=== PATIENT | female | born 1955 | race Caucasian/White ===

== ENCOUNTER 2017-10-12 23:53 | Observation (INO) ==
[2017-10-13] MEDS ORDERED: *HR* Morphine 2 MG/ML SYRINGE IVP PRN (01:34)
[2017-10-13] MEDS ORDERED: Ondansetron 4 MG/2 ML VIAL IVP PRN (01:34)
[2017-10-13] MEDS ORDERED: *HR* Dextrose 50 % in Water (Syg) 50 ML SYRINGE IVP PRN (01:34)
[2017-10-13] MEDS ORDERED: Dextrose Gel 15 GM/37.5 ML TUBE PO PRN ×2 (01:34)
[2017-10-13] MEDS ORDERED: D5% in Water 1,000 ML IVC PRN (01:34)
[2017-10-13] MEDS: 0.9 % Sodium Chloride 1,000 ML IVC SCH ×3 (02:10→17:36)
[2017-10-13] MEDS: *HR* Heparin 5,000 UNIT/ML VIAL SQ SCH ×2 (05:22→17:32)
[2017-10-13 05:37] LABS: Basophils # 0.1 K/mcL (0.0-0.2); Basophils % 0.8 %; Eosinophils % 0.4 %; Hematocrit 36.9 % (35.3-44.9); Hemoglobin 11.3 g/dL (11.5-15.4); Immature Granulocytes % 0.4 % (0-4); Lymphocytes # 1.1 K/mcL (0.6-4.6); Lymphocytes % 11.8 %; Mean Corpuscular HGB Conc 30.6 g/dL (31.6-35.5); Mean Corpuscular Volume 88.1 fL (83.0-100.0); Mean Platelet Volume 10.3 fL (9.4-12.4); Monocytes # 0.7 K/mcL (0.0-1.3); Monocytes % 7.1 %; Neutrophils # 7.3 K/mcL (1.6-8.9); Platelet Count 232 K/mcL (140-400); Red Blood Count 4.19 M/mcL (3.82-4.97); Red Cell Distribution Width 14.7 % (11.5-14.5); Segmented Neutrophils % 79.5 %
[2017-10-13 06:10] LABS: Alanine Aminotransferase 13 Units/L (7-52); Albumin 3.1 g/dL (3.5-5.7); Albumin/Globulin Ratio 1.2 (1.1-2.2); Alkaline Phosphatase 55 Units/L (34-104); Aspartate Amino Transferase 16 Units/L (13-39); BUN/Creatinine Ratio 23 (6-26); Bilirubin,Total 0.4 mg/dL (0.3-1.0); Blood Urea Nitrogen 15 mg/dL (8-23); Calcium 7.8 mg/dL (8.6-10.3); Carbon Dioxide 25 mEq/L (23-29); Chloride 107 mEq/L (98-107); Globulin 2.6 g/dL (2.4-3.5); Glucose 123 mg/dL (70-105); Osmolality,Calculated 288 (280-300); Potassium 4.6 mEq/L (3.5-5.1); Sodium 138 mEq/L (136-145); Total Protein 5.7 g/dL (6.4-8.9); eGFR For African Americans > 60 (> 60); eGFR For Non-African Americans > 60 (> 60)
[2017-10-13] MEDS: Insulin LISPRO 300 UNITS/3 ML VIAL SQ SCH ×3 (06:38→17:35)
--- NOTE | 2017-10-13 08:39 | Internal Med History&Physical ---
Date of Encounter: 10/13/17 Time of Encounter: 08:37 Assessment and Plan (1) Vomiting and diarrhea Current visit: Yes Status: Acute Picture is more suggestive of gastroenteritis. Patient presented with vomiting diarrhea and abdominal pain. Abdominal exam is benign. She is nontender. Prior surgeries include only hysterectomy and a . She had never had a colonoscopy and I advised her to get one as an outpatient. CT scan showing partial small bowel obstruction. Appreciate surgery input on this and decision regarding diet advancement (2) Diabetes mellitus type 2 in obese Current visit: Yes Status: Acute Sliding scale insulin. (3) DVT prophylaxis Current visit: Yes Status: Acute Heparin subcutaneous Internal Medicine - H&P: HPI Chief complaint: vomiting and diarrhea History of present illness: Ms. Adams is a 62 year old female patient presented to the emergency room yesterday with a main complain of abdominal pain vomiting and diarrhea. Approximately 5 PM after patient ate a bag of cashews she started noticing diffuse crampy periumbilical abdominal pain associated with intractable nonbloody nonbilious vomiting and 3 loose bowel movements in addition to chills. No hematemesis melena or hematochezia. CT scan performed at the outside emergency room showed concern for partial small bowel obstruction. Patient only abdominal surgeries include hysterectomy and . Patient denies having bowel obstruction before. Patient never had a colonoscopy before. During my interview patient denies any abdominal pain. Past Med Surg Social Fam HX - Past Medical History Medical history: diabetes Psychiatric history: no psych history - Past Surgical History Surgical History: hysterectomy - Social History Smoking Status: Never smoker Smokeless Tobacco Status: No Alcohol use: none Drug use: none Internal Medicine - H&P: Meds Acetaminophen with Codeine [Acetaminophen-Cod #3 Tablet] 1 each PO QID 10/12/17 [History] Albuterol Sulfate [Albuterol Inhaler] 1 puff IH DAILY PRN 10/12/17 [History] Albuterol Sulfate [Proventil Hfa] 6.7 gm IH DAILY PRN 10/12/17 [History] Aspirin Enteric Coated [Aspirin EC] 325 mg PO DAILY 10/12/17 [History] Atorvastatin [Lipitor] 10 mg PO HS 10/12/17 [History] Citalopram Hydrobromide [Citalopram HBr] 10 mg PO BID 10/12/17 [History] Diltiazem CD (24hr) [Cardizem CD] 300 mg PO DAILY 10/12/17 [History] Etodolac [Lodine] 400 mg PO BID 10/12/17 [History] Gabapentin [Neurontin] 600 mg PO QID 10/12/17 [History] Lisinopril [Zestril] 5 mg PO BID 10/12/17 [History] Metformin HCl [Fortamet] 1,000 mg PO HS 10/12/17 [History] Methyl Salicylate/Menth/Camph [Salonpas Large Patch] 1 each TP DAILY PRN [History] Methyl Salicylate/Menthol [Salonpas Pain Relieve Jet [place]] 118 ml TP DAILY PRN 10/12/17 [History] Metoprolol Tartrate [Lopressor] 25 mg PO TID 10/12/17 [History] Omeprazole [PriLOSEC] 20 mg PO HS 10/12/17 [History] glyBURIDE [GlyBURIDE] 5 mg PO BIDWM 10/12/17 [History] 3 Allergy/AdvReac Type Severity Reaction Status Date / Time caffeine Allergy Palpitation Verified 10/12/17 21:13 s Penicillins Allergy Hives Verified 10/12/17 21:13 tramadol Allergy Vomiting Verified 10/12/17 21:13 All Systems PM: A 10-system review of systems was performed and is negative for pertinent findings except as documented above in the HPI. Review of systems: 10 point review of systems is negative except for HPI - Constitutional Vitals: Temp Pulse Resp BP Pulse Ox 98.5 F 88 16 127/76 95 10/13/17 07:28 10/13/17 07:28 10/13/17 07:28 10/13/17 07:28 10/13/17 07:28 Exam: Gen.: patient is alert oriented times 3 not in distress. Cardiac: normal S1 S2 no additional sounds are murmurs. Chest: clear to auscultation. Abdomen: soft nontender nondistended. Lower extremity no swelling mucous membranes: moist Internal Med - H&P Results - Labs CBC & Chem 7: 10/13/17 04:53 10/13/17 04:53 Labs: Short CBC 10/13/17 Range/Units 04:53 WBC 9.2 (4.3-11.1) K/mcL Hgb 11.3 L D (11.5-15.4) g/dL Hct 36.9 (35.3-44.9) % Plt Count 232 (140-400) K/mcL Neutrophils # 7.3 (1.6-8.9) K/mcL BMP 10/13/17 04:53 Sodium 138 Potassium 4.6 Chloride 107 Carbon Dioxide 25 BUN 15 Creatinine 0.65 Glucose 123 H Calcium 7.8 L Liver Function 10/13/17 Range/Units 04:53 Total Bilirubin 0.4 (0.3-1.0) mg/dL AST 16 (13-39) Units/L ALT 13 (7-52) Units/L Alkaline Phosphatase 55 (34-104) Units/L Albumin 3.1 L (3.5-5.7) g/dL
[2017-10-13] MEDS: Aspirin Enteric Coated 325 MG Tablet PO SCH (09:11)
[2017-10-13] MEDS: Diltiazem CD (24hr) 300 MG CAPSULE PO SCH (09:12)
--- NOTE | 2017-10-13 10:06 | General Surgery Consult Note ---
Date of Encounter: 10/13/17 Time of Encounter: 10:06 Assessment and Plan (1) Abdominal pain Current Visit: Yes Status: Resolved Mrs. Mallory's abdominal exam is benign at this time. She denies any abdominal pain, nausea, vomiting, or diarrhea. She reports passing flatus. She refuses any further workup at this time and request discharged home with a plan to return to the hospital if her symptoms return. I think this reasonable course of action. Surgery will sign off at this time. Thank you for allowing us to participate in Odalys's care. Please call if any questions or concerns arise. Qualifiers: Abdominal location: generalized Qualified Code(s): R10.84 - Generalized abdominal pain History of Present Illness Consult date: 10/13/17 (Dr. Yossi Falcon) Reason for consult: abdominal pain (Possible small bowel obstruction) Requesting physician: Case Kerr History of present illness: Reason for surgical consult: Concern for possible small bowel obstruction Odalys is a 62-year-old female with a past medical history of morbid obesity, BMI 39.4, type II diabetes, anxiety, mitral valve prolapse, SVT, fibromyalgia, hyperlipidemia, arthritis, basal cell skin cancer on the scalp, and a surgical history of a hysterectomy, section, bilateral knee repairs, and facial reconstruction surgery. She denies smoking or alcohol history. She has never had an EGD or a colonoscopy. She presented on 10/12/2017 with complaints of abdominal pain after eating cashews. She states she felt fine prior to eating the cashews, shortly after eating cashews she became nauseated had abdominal pain, and vomiting. Her called EMS to trans per her to the emergency department in [place] because he did not feel like he could get her out of the house. The CT scan was performed by [place] and showed concern for a possible small bowel obstruction. She was transferred to [facility] for further evaluation. Currently the patient states her nausea, abdominal pain, diarrhea, and vomiting has completely resolved. She denies headache, dizziness, fever, chills, changes in bowel habits, urinary symptoms, or generalized weakness. She reports she is passing flatus but has not had a bowel movement here. She reports in appetite. She states she "feels like my normal self." She requests to be discharged to home with a plan to return to the hospital if her symptoms return. Past Med Surg Social Fam HX - Past Medical History Medical history: diabetes Psychiatric history: no psych history - Past Surgical History Surgical History: hysterectomy - Social History Smoking Status: Never smoker Smokeless Tobacco Status: No Alcohol use: none Drug use: none Medications and Allergies Acetaminophen with Codeine [Acetaminophen-Cod #3 Tablet] 1 each PO QID 10/12/17 [History] Albuterol Sulfate [Albuterol Inhaler] 1 puff IH DAILY PRN 10/12/17 [History] Albuterol Sulfate [Proventil Hfa] 6.7 gm IH DAILY PRN 10/12/17 [History] Aspirin Enteric Coated [Aspirin EC] 325 mg PO DAILY 10/12/17 [History] Atorvastatin [Lipitor] 10 mg PO HS 10/12/17 [History] Citalopram Hydrobromide [Citalopram HBr] 10 mg PO BID 10/12/17 [History] Diltiazem CD (24hr) [Cardizem CD] 300 mg PO DAILY 10/12/17 [History] Etodolac [Lodine] 400 mg PO BID 10/12/17 [History] Gabapentin [Neurontin] 600 mg PO QID 10/12/17 [History] Lisinopril [Zestril] 5 mg PO BID 10/12/17 [History] Metformin HCl [Fortamet] 1,000 mg PO HS 10/12/17 [History] Methyl Salicylate/Menth/Camph [Salonpas Large Patch] 1 each TP DAILY PRN [History] Methyl Salicylate/Menthol [Salonpas Pain Relieve Jet [place]] 118 ml TP DAILY PRN 10/12/17 [History] Metoprolol Tartrate [Lopressor] 25 mg PO TID 10/12/17 [History] Omeprazole [PriLOSEC] 20 mg PO HS 10/12/17 [History] glyBURIDE [GlyBURIDE] 5 mg PO BIDWM 10/12/17 [History] 3 Allergy/AdvReac Type Severity Reaction Status Date / Time caffeine Allergy Palpitation Verified 10/12/17 21:13 s Penicillins Allergy Hives Verified 10/12/17 21:13 tramadol Allergy Vomiting Verified 10/12/17 21:13 Review of Systems All systems PM: reviewed and no additional remarkable complaints except as stated All systems PM: A 10-system review of systems was performed and is negative for pertinent findings except as documented above in the HPI. General Surgery Exam Initial Vital Signs Temp Pulse Resp BP Pulse Ox 98.9 F 83 14 130/68 95 10/13/17 01:37 10/13/17 01:37 10/13/17 01:37 10/13/17 01:37 10/13/17 01:37 - General physical appearance well developed, well nourished, no distress, obese - Respiratory normal expansion, normal respiratory effort, clear to auscultation - Cardiovascular Cardiovascular exam: Present: RRR, murmurs, distant heart sounds - Abdomen Abdomen general surgery: Present: bowel sounds present, soft, non tender - Integumentary Integumentary general surgery: Present: warm and dry, no abnormal pigmentation - Neurologic Present: CN 2-12 grossly intact, normal coordination, normal sensation - Musculoskeletal Present: normal gait, normal posture - Psychiatric Psychiatric general surgery: Present: A&Ox3, appropriate, oriented to person, oriented to place, oriented to time, speech is normal, memory intact Exam Initial Vital Signs Temp Pulse Resp BP Pulse Ox 98.9 F 83 14 130/68 95 10/13/17 01:37 10/13/17 01:37 10/13/17 01:37 10/13/17 01:37 10/13/17 01:37 Results - Labs 10/13/17 04:53 10/13/17 04:53 Abnormal lab results Hgb 11.3 g/dL (11.5-15.4) L D 10/13/17 04:53 MCH 27.0 pg (28.0-33.3) L 10/13/17 04:53 MCHC 30.6 g/dL (31.6-35.5) L 10/13/17 04:53 RDW 14.7 % (11.5-14.5) H 10/13/17 04:53 Glucose 123 mg/dL (70-105) H 10/13/17 04:53 Calcium 7.8 mg/dL (8.6-10.3) L 10/13/17 04:53 Serum Total Protein 5.7 g/dL (6.4-8.9) L 10/13/17 04:53 Albumin 3.1 g/dL (3.5-5.7) L 10/13/17 04:53 Diabetes panel 10/13/17 Range/Units 04:53 Sodium 138 (136-145) mEq/L Potassium 4.6 (3.5-5.1) mEq/L Chloride 107 (98-107) mEq/L Carbon Dioxide 25 (23-29) mEq/L BUN 15 (8-23) mg/dL Creatinine 0.65 (0.60-1.20) mg/dL Glucose 123 H (70-105) mg/dL Calcium 7.8 L (8.6-10.3) mg/dL AST 16 (13-39) Units/L ALT 13 (7-52) Units/L Alkaline Phosphatase 55 (34-104) Units/L Albumin 3.1 L (3.5-5.7) g/dL Calcium panel 10/13/17 Range/Units 04:53 Calcium 7.8 L (8.6-10.3) mg/dL Albumin 3.1 L (3.5-5.7) g/dL Pituitary panel 10/13/17 Range/Units 04:53 Sodium 138 (136-145) mEq/L Potassium 4.6 (3.5-5.1) mEq/L Chloride 107 (98-107) mEq/L Carbon Dioxide 25 (23-29) mEq/L BUN 15 (8-23) mg/dL Creatinine 0.65 (0.60-1.20) mg/dL Glucose 123 H (70-105) mg/dL Calcium 7.8 L (8.6-10.3) mg/dL Adrenal panel 10/13/17 Range/Units 04:53 Sodium 138 (136-145) mEq/L Potassium 4.6 (3.5-5.1) mEq/L Chloride 107 (98-107) mEq/L Carbon Dioxide 25 (23-29) mEq/L BUN 15 (8-23) mg/dL Creatinine 0.65 (0.60-1.20) mg/dL Glucose 123 H (70-105) mg/dL Calcium 7.8 L (8.6-10.3) mg/dL Total Bilirubin 0.4 (0.3-1.0) mg/dL AST 16 (13-39) Units/L ALT 13 (7-52) Units/L Alkaline Phosphatase 55 (34-104) Units/L Albumin 3.1 L (3.5-5.7) g/dL All other labs normal. - Imaging CT scan - abdomen: report reviewed CT scan - pelvis: report reviewed Consult Discharge Plan - Plan Referrals: Juan F Guzman MD [Primary Care Provider] -
[2017-10-13] MEDS: *HR* Acetaminophen w/Cod 300-30 mg 1 TAB TABLET PO PRN ×2 (10:53→21:18)
[2017-10-14] MEDS: 0.9 % Sodium Chloride 1,000 ML IVC SCH ×2 (01:22→09:05)
[2017-10-14] MEDS: Insulin LISPRO 300 UNITS/3 ML VIAL SQ SCH ×3 (01:25→12:52)
[2017-10-14] MEDS: *HR* Heparin 5,000 UNIT/ML VIAL SQ SCH (05:02)
[2017-10-14] MEDS: *HR* Acetaminophen w/Cod 300-30 mg 1 TAB TABLET PO PRN ×2 (05:02→11:19)
[2017-10-14 05:27] LABS: Basophils # 0.1 K/mcL (0.0-0.2); Basophils % 1.2 %; Eosinophils # 0.4 K/mcL (0.0-0.6); Eosinophils % 6.3 %; Hematocrit 37.8 % (35.3-44.9); Hemoglobin 11.6 g/dL (11.5-15.4); Immature Granulocytes % 0.4 % (0-4); Lymphocytes # 1.1 K/mcL (0.6-4.6); Lymphocytes % 15.8 %; Mean Corpuscular HGB Conc 30.7 g/dL (31.6-35.5); Mean Corpuscular Hemoglobin 27.2 pg (28.0-33.3); Mean Corpuscular Volume 88.7 fL (83.0-100.0); Mean Platelet Volume 9.9 fL (9.4-12.4); Monocytes # 0.7 K/mcL (0.0-1.3); Monocytes % 10.5 %; Neutrophils # 4.5 K/mcL (1.6-8.9); Platelet Count 223 K/mcL (140-400); Red Blood Count 4.26 M/mcL (3.82-4.97); Red Cell Distribution Width 14.8 % (11.5-14.5); Segmented Neutrophils % 65.8 %
[2017-10-14 06:06] LABS: BUN/Creatinine Ratio 11 (6-26); Blood Urea Nitrogen 7 mg/dL (8-23); Calcium 7.9 mg/dL (8.6-10.3); Carbon Dioxide 28 mEq/L (23-29); Chloride 109 mEq/L (98-107); Glucose 128 mg/dL (70-105); Magnesium 1.4 mg/dL (1.6-2.6); Osmolality,Calculated 294 (280-300); Potassium 4.1 mEq/L (3.5-5.1); Sodium 142 mEq/L (136-145); eGFR For African Americans > 60 (> 60); eGFR For Non-African Americans > 60 (> 60)
[2017-10-14] MEDS: Diltiazem CD (24hr) 300 MG CAPSULE PO SCH (09:04)
[2017-10-14] MEDS: Aspirin Enteric Coated 325 MG Tablet PO SCH (09:04)
[2017-10-14] MEDS ORDERED: Gabapentin 300 MG CAPSULE PO SCH (13:00)
[2017-10-14 13:58] VITALS: BP 123/70
--- NOTE | 2017-10-14 14:34 | Discharge Summary ---
Date of Encounter: 10/14/17 Time of Encounter: 11:00 - Discharge Diagnosis (1) Diabetes mellitus type 2 in obese Priority: Primary Status: Acute (2) Abdominal pain Priority: Secondary Status: Resolved Qualifiers: Abdominal location: generalized Qualified Code(s): R10.84 - Generalized abdominal pain - Discharge Medications Home Medications: Acetaminophen with Codeine [Acetaminophen-Cod #3 Tablet] 1 each PO QID 10/12/17 [History] Albuterol Sulfate [Albuterol Inhaler] 1 puff IH DAILY PRN 10/12/17 [History] Aspirin Enteric Coated [Aspirin EC] 325 mg PO DAILY 10/12/17 [History] Atorvastatin [Lipitor] 10 mg PO HS 10/12/17 [History] Citalopram Hydrobromide [Citalopram HBr] 10 mg PO BID 10/12/17 [History] Diltiazem CD (24hr) [Cardizem CD] 300 mg PO DAILY 10/12/17 [History] Etodolac [Lodine] 400 mg PO BID 10/12/17 [History] Gabapentin [Neurontin] 600 mg PO QID 10/12/17 [History] Lisinopril [Zestril] 5 mg PO BID 10/12/17 [History] Metformin HCl [Fortamet] 1,000 mg PO HS 10/12/17 [History] Methyl Salicylate/Menth/Camph [Salonpas Large Patch] 1 each TP DAILY PRN [History] Methyl Salicylate/Menthol [Salonpas Pain Relieve Jet [place]] 118 ml TP DAILY PRN 10/12/17 [History] Metoprolol Tartrate [Lopressor] 25 mg PO TID 10/12/17 [History] Omeprazole [PriLOSEC] 20 mg PO HS 10/12/17 [History] glyBURIDE [GlyBURIDE] 5 mg PO BIDWM 10/12/17 [History] Allergies/Adverse Reactions: 3 Allergy/AdvReac Type Severity Reaction Status Date / Time caffeine Allergy Palpitation Verified 10/13/17 10:44 s Penicillins Allergy Hives Verified 10/13/17 10:44 tramadol Allergy Vomiting Verified 10/13/17 10:44 Date of admission: 10/13/17 01:11 Primary care physician: Juan F Guzman MD Consults: 10/13/17 01:34 Consult to Surgery [CONS] Routine Consulting Provider: Yossi Falcon Reason for Consult: SBO Call Completed: No - Patient Status Disposition: Home, Self-Care - Discharge Instructions Follow Up With: Juan F Guzman MD [Primary Care Provider] - Hospital course: Patient is a 62-year-old female with past medical history significant for diabetes who presents to the ER on 10/13/17 due to abdominal pain and nausea/ vomiting. Patient reported that abdominal pain started after eating a bag of cashews. Shortly thereafter patient noticed diffuse cramping with periumbilical abdominal discomfort in addition to her intractable nonbloody, non-bilious vomiting with 3 loose bowel movements. She decided to go to [place] [facility] for evaluation which she was found to have a partial small bowel obstruction on CT scan. Patient was transferred to [facility] for further management. During patients hospital stay, Gen. surgery was consulted with recommendations for medical management due to the fact the patient was passing flatus and her abdominal pain resolved. In addition patient also had a bowel movement. Patient tolerating by mouth and will be discharged to follow-up with primary care provider. - Time Spent with Patient Total time spent providing and/or coordinating discharge services: Less than 30 minutes - Constitutional Vitals: Temp Pulse Resp BP Pulse Ox 98.0 F 70 16 123/70 93 10/14/17 13:57 10/14/17 13:57 10/14/17 13:57 10/14/17 13:57 10/14/17 13:57 General appearance: Present: no acute distress - GI/Abdominal GI/Abdominal exam: Present: normal bowel sounds
== END 2017-10-14 16:17 | disposition home or self-care (01) ==
LOC: INTOOBSV 10-13 01:11 → 3ANU 10-13 01:11
PROVIDERS: ADMIT Pediatrics; ATTEND Hospitalist

== ENCOUNTER 2017-10-27 10:52 | Inpatient (IN) ==
--- NOTE | 2017-10-27 11:25 | Emergency Department Note ---
Disposition Clinical Impression: CHF (congestive heart failure) Qualifiers: Congestive heart failure type: systolic Congestive heart failure chronicity: unspecified Qualified Code(s): I50.20 - Unspecified systolic (congestive) heart failure Pneumonia Qualifiers: Pneumonia type: due to unspecified organism Laterality: bilateral Lung location : unspecified part of lung Qualified Code(s): J18.9 - Pneumonia, unspecified organism Disposition: Admitted As Inpatient Condition: Fair Referrals: Juan F Guzman MD [Primary Care Provider] - Forms: ED Satisfaction Letter Time of Disposition: 14:02 SOB HPI - General Chief Complaint: ED Shortness of Breath/Dyspnea Stated Complaint: SOB Time Seen by Provider: 10/27/17 10:58 Source: patient Limitations: no limitations Nursing Notes Reviewed: Yes Vital Signs Reviewed: Yes - History of Present Illness Presents with shortness of breath for the last 5 days which is worse with exertion and constant and she does have bilateral lower extremity swelling which is much worse on the left. Typically does get swelling of her legs but it typically goes down and the left leg swelling has persisted. She denies any weight gain. No chest pain or discomfort. No fevers, coughing. No medication has been used. She does have a history of asthma and has been using her inhaler /aerosol but this has not improved her symptoms. No history of congestive heart failure. Social history: No smoking or alcohol. She is here with her - Related Data Home Medications Medication Instructions Recorded Confirmed Acetaminophen with Codeine 1 each PO QID 10/12/17 10/27/17 [Acetaminophen-Cod #3 Tablet] Albuterol Sulfate [Albuterol 1 puff IH DAILY PRN 10/12/17 10/27/17 Inhaler] Aspirin Enteric Coated [Aspirin EC] 325 mg PO DAILY 10/12/17 10/27/17 Atorvastatin [Lipitor] 10 mg PO HS 10/12/17 10/27/17 Citalopram Hydrobromide 10 mg PO BID 10/12/17 10/27/17 [Citalopram HBr] Diltiazem CD (24hr) [Cardizem CD] 300 mg PO DAILY 10/12/17 10/27/17 Etodolac [Lodine] 400 mg PO BID 10/12/17 10/27/17 Gabapentin [Neurontin] 600 mg PO QID 10/12/17 10/27/17 Lisinopril [Zestril] 5 mg PO BID 10/12/17 10/27/17 Metformin HCl [Fortamet] 1,000 mg PO HS 10/12/17 10/27/17 Methyl Salicylate/Menth/Camph 1 each TP DAILY PRN 10/12/17 10/27/17 [Salonpas Large Patch] Methyl Salicylate/Menthol 118 ml TP DAILY PRN 10/12/17 10/27/17 [Salonpas Pain Relieve Jet [place]] Metoprolol Tartrate [Lopressor] 25 mg PO TID 10/12/17 10/27/17 Omeprazole [PriLOSEC] 20 mg PO HS 10/12/17 10/27/17 glyBURIDE [GlyBURIDE] 5 mg PO BIDWM 10/12/17 10/27/17 Allergies Allergy/AdvReac Type Severity Reaction Status Date / Time caffeine Allergy Palpitation Verified 10/13/17 10:44 s Penicillins Allergy Hives Verified 10/13/17 10:44 tramadol Allergy Vomiting Verified 10/13/17 10:44 Review of Systems: Constitutional: No fever Vision: No blurred vision ENT: No rhinorrhea Respiratory: No cough Allergic: No allergies : No blood in urine GI: No blood in stool Hematologic: No bruising Dermatologic: No skin rash Musculoskeletal: No pain in the extremities Neuro: No numbness of the extremities Past Medical History - Past Medical History Medical history: Reports: asthma, diabetes Surgical history: Reports: hysterectomy Psychiatric history: Reports: no psych history EMERGENCY MEDICAL TECHNICIAN BASIC history: Reports: no EMERGENCY MEDICAL TECHNICIAN BASIC history - Social History Smoking Status: Never smoker Smokeless Tobacco Status: No Alcohol use: Reports: none Drug use: Reports: none Physical Exam CONSTITUTIONAL: Alert and oriented X3, well-nourished, well appearing, in no apparent distress HEAD: Normocephalic; atraumatic. EYES: PERRL, no scleral icterus. NOSE: The nose is normal in appearance without rhinorrhea RESP: Normal chest excursion with respiration; breath sounds with bibasilar crackles which are symmetric, no wheezing, apices are clear CV: Regular rhythm, without murmurs, rub or gallop ABD: Non-distended; non-tender, soft,without rigidity, rebound or guarding SKIN: Normal for age and race; warm and dry; no apparent lesions EXTREMITIES: Pulses are 2 plus and equal times 4 extremities, bilateral lower extremity edema worse on the left compared to the right, no erythema or signs of infection, muscle pain peripheral edema or calf muscle pain. - General Limitations: no limitations General appearance: alert, in no apparent distress Course Vital Signs O2 Sat by Pulse Oximetry 88 10/27/17 11:00 Temperature 98 F 10/27/17 11:01 Pulse Rate 70 10/27/17 12:37 Respiratory Rate 18 10/27/17 12:37 Blood Pressure 148/75 10/27/17 12:37 O2 Sat by Pulse Oximetry 92 10/27/17 12:37 Oxygen Delivery Oxygen Delivery Nasal Cannula Shortness of Breath/Dyspnea - MDM Narrative Medical decision making narrative: Labs including BNP and d-dimer. I did review the chest x-ray which does look like congestive heart failure and the patient will be treated for that. She does have increased swelling on the left compared to the right and a Doppler be done as well as a d-dimer which is pending. Labs are pending. I did review the patient's EKG showing normal sinus rhythm with a rate of 71 and nonspecific T-wave change which is basically some flattening and this was present on the previous EKG from several weeks ago. 1125 I did review the patient's test results. Chest x-ray as well as the clinical presentation most suggestive of congestive heart failure but with the elevated d -dimer a CTA was done and based on the radiologist's interpretation this is most suggestive of a pneumonia. As the patient was recently admitted she will be started on cefepime and vancomycin and we did discuss the case with the hospitalist who accepted the patient and she will be admitted. She has received treatment for congestive heart failure with IV Lasix and nitroglycerin paste and she is admitted. 1357 - Medical Records Medical records reviewed: Yes I reviewed the patient's medical records. - Lab Data Lab results reviewed: Yes I reviewed the patient's lab results. Result diagrams: 10/27/17 11:22 10/27/17 11:22 Lab Results 10/27/17 10/27/17 10/27/17 Range/Units 11:22 11:22 11:22 WBC 7.5 (4.3-11.1) K/mcL RBC 4.00 (3.82-4.97) M/mcL Hgb 11.0 L (11.5-15.4) g/dL Hct 36.1 (35.3-44.9) % MCV 90.3 (83.0-100.0) fL MCH 27.5 L (28.0-33.3) pg MCHC 30.5 L (31.6-35.5) g/dL RDW 15.8 H (11.5-14.5) % Plt Count 261 (140-400) K/mcL MPV 9.7 (9.4-12.4) fL Immature Gran % 0.7 (0-4) % Seg Neutrophils % 75.7 % Lymphocytes % 11.4 % Monocytes % 6.7 % Eosinophils % 4.6 % Basophils % 0.9 % Neutrophils # 5.7 (1.6-8.9) K/mcL Lymphocytes # 0.9 (0.6-4.6) K/mcL Monocytes # 0.5 (0.0-1.3) K/mcL Eosinophils # 0.3 (0.0-0.6) K/mcL Basophils # 0.1 (0.0-0.2) K/mcL Nucleated RBCs/100 WBC 0.3 H (0) /100 WBC D-Dimer 1331 H (0-500) ng/mLFEU Sodium 141 (136-145) mEq/L Potassium 3.9 (3.5-5.1) mEq/L Chloride 108 H (98-107) mEq/L Carbon Dioxide 23 (23-29) mEq/L BUN 17 (8-23) mg/dL Creatinine 0.59 L (0.60-1.20) mg/dL Est GFR ( Amer) > 60 (> 60) Est GFR (Non-Af Amer) > 60 (> 60) BUN/Creatinine Ratio 29 H (6-26) Glucose 105 (70-105) mg/dL Calculated Osmolality 294 (280-300) Calcium 8.7 (8.6-10.3) mg/dL Troponin I (< 0.04) ng/mL B-Natriuretic Peptide (Less than 100) pg/mL 10/27/17 10/27/17 Range/Units 11:22 11:22 WBC (4.3-11.1) K/mcL RBC (3.82-4.97) M/mcL Hgb (11.5-15.4) g/dL Hct (35.3-44.9) % MCV (83.0-100.0) fL MCH (28.0-33.3) pg MCHC (31.6-35.5) g/dL RDW (11.5-14.5) % Plt Count (140-400) K/mcL MPV (9.4-12.4) fL Immature Gran % (0-4) % Seg Neutrophils % % Lymphocytes % % Monocytes % % Eosinophils % % Basophils % % Neutrophils # (1.6-8.9) K/mcL Lymphocytes # (0.6-4.6) K/mcL Monocytes # (0.0-1.3) K/mcL Eosinophils # (0.0-0.6) K/mcL Basophils # (0.0-0.2) K/mcL Nucleated RBCs/100 WBC (0) /100 WBC D-Dimer (0-500) ng/mLFEU Sodium (136-145) mEq/L Potassium (3.5-5.1) mEq/L Chloride (98-107) mEq/L Carbon Dioxide (23-29) mEq/L BUN (8-23) mg/dL Creatinine (0.60-1.20) mg/dL Est GFR ( Amer) (> 60) Est GFR (Non-Af Amer) (> 60) BUN/Creatinine Ratio (6-26) Glucose (70-105) mg/dL Calculated Osmolality (280-300) Calcium (8.6-10.3) mg/dL Troponin I < 0.03 (< 0.04) ng/mL B-Natriuretic Peptide 389 H (Less than 100) pg/mL - Radiology Data Radiology results reviewed: Yes I reviewed the patient's radiology results. Chest X-Ray 10/27/17 11:11 IMPRESSION: Findings are suggestive of congestive heart failure with small bilateral pleural effusions. D/ / Sangita Santillan MD / Sangita Santillan MD Interpreting Provider: Sangita Santillan MD Chest CTA 10/27/17 12:18 IMPRESSION: 1. No evidence of pulmonary embolism or acute aortic disease. 2. Bilateral lower lobe infiltrates and small pleural effusions consistent with pneumonia. 3. Masslike lesion in the right upper lobe may also represent an infiltrate. Increased interstitial markings noted. 4. Mediastinal and right hilar adenopathy. 5. The above findings may represent the result of infection with pneumonia. In view of significant adenopathy as described neoplasm cannot be excluded. D/ / 10/27/2017 13:46:24 Brielle Toledo MD / jose francisco Interpreting Provider: Brielle Toledo MD
[2017-10-27 11:33] LABS: Basophils # 0.1 K/mcL (0.0-0.2); Basophils % 0.9 %; Eosinophils # 0.3 K/mcL (0.0-0.6); Eosinophils % 4.6 %; Hematocrit 36.1 % (35.3-44.9); Immature Granulocytes % 0.7 % (0-4); Lymphocytes # 0.9 K/mcL (0.6-4.6); Lymphocytes % 11.4 %; Mean Corpuscular HGB Conc 30.5 g/dL (31.6-35.5); Mean Corpuscular Hemoglobin 27.5 pg (28.0-33.3); Mean Corpuscular Volume 90.3 fL (83.0-100.0); Mean Platelet Volume 9.7 fL (9.4-12.4); Monocytes # 0.5 K/mcL (0.0-1.3); Monocytes % 6.7 %; Neutrophils # 5.7 K/mcL (1.6-8.9); Nucleated Red Blood Cells 0.3 /100 WBC (0); Platelet Count 261 K/mcL (140-400); Red Cell Distribution Width 15.8 % (11.5-14.5); Segmented Neutrophils % 75.7 %
[2017-10-27] MEDS ORDERED: Furosemide 40 MG/4 ML VIAL IVP ONE (11:46)
[2017-10-27] MEDS ORDERED: Nitroglycerin 1 INCH/GM PACKET TP ONE (11:46)
[2017-10-27 11:56] LABS: BUN/Creatinine Ratio 29 (6-26); Blood Urea Nitrogen 17 mg/dL (8-23); Calcium 8.7 mg/dL (8.6-10.3); Carbon Dioxide 23 mEq/L (23-29); Chloride 108 mEq/L (98-107); Glucose 105 mg/dL (70-105); Osmolality,Calculated 294 (280-300); Potassium 3.9 mEq/L (3.5-5.1); Sodium 141 mEq/L (136-145); eGFR For African Americans > 60 (> 60); eGFR For Non-African Americans > 60 (> 60)
[2017-10-27] MEDS ORDERED: Vancomycin 1,250 MG in D5% in Water 250 ML IVPB ONE (13:49)
[2017-10-27] MEDS ORDERED: Cefepime HCl 2,000 MG in D5% in Water (Mini-Bag+) 100 ML IVPB STA (13:49)
--- NOTE | 2017-10-27 19:01 | Internal Med History&Physical ---
Date of Encounter: 10/27/17 Time of Encounter: 18:00 Assessment and Plan (1) Hospital-acquired pneumonia Current visit: Yes Status: Acute -CTA of chest showed bilateral lower lobe infiltrates and small pleural effusions consistent with pneumonia in addition to a mass like lesion in the right upper lobe may also represent an infiltrate. There was also additional findings of Mediastinal and right hilar adenopathy and due to the above findings, neoplasm cannot be excluded. -Will continue coverage with IV vancomycin and IV cefepime which was started in the ER. -Will need a repeat CT in 2 months for follow-up for the above (2) Acute respiratory failure with hypoxia Current visit: Yes Status: Acute -Secondary to the above. -Will continue supplemental oxygen to wean as tolerates. (3) HTN (hypertension), benign Current visit: Yes Status: Acute -Continue home GEOVANNI inhibitor and beta paulino (4) Diabetes mellitus type 2 in obese Current visit: No Status: Acute -Will hold oral diabetic medications and cover with sliding scale insulin (5) HLD (hyperlipidemia) Current visit: Yes Status: Acute -Continue statin Qualifiers: Hyperlipidemia type: unspecified Qualified Code(s): E78.5 - Hyperlipidemia , unspecified (6) GERD (gastroesophageal reflux disease) Current visit: Yes Status: Acute -Continue PPI Qualifiers: Esophagitis presence: esophagitis presence not specified Qualified Code(s) : K21.9 - Gastro-esophageal reflux disease without esophagitis (7) Mood disorder Current visit: Yes Status: Acute -Continue SSRI (8) DVT prophylaxis Current visit: No Status: Acute -Up cutaneous heparin Internal Medicine - H&P: HPI Chief complaint: Shortness of breath Admitted From: Home Plans for Post Hospital Care: Home History of present illness: Patient is a 62-year-old female with past medical history significant for hypertension, diabetes, and hyperlipidemia who presents to the ER on 10/27/17 due to shortness of breath. Patient reports a 5 day history of shortness of breath and dyspnea with exertion which has gradually gotten worse and decided to come into the ER for evaluation. She denies any associated symptoms of cough, fever/chills or nausea /vomiting/diarrhea. In the ER, patient was found to be in acute hypoxic respiratory failure. CTA of chest showed bilateral lower lobe infiltrates and small pleural effusions consistent with pneumonia in addition to a mass like lesion in the right upper lobe may also represent an infiltrate. There was also additional findings of Mediastinal and right hilar adenopathy and due to the above findings, neoplasm cannot be excluded. Patient will be admitted to the medical surgical floor for acute hypoxic respiratory failure secondary to HAP. Past Med Surg Social Fam HX - Past Medical History Medical history: asthma, diabetes, valvular heart disease Psychiatric history: no psych history - Past Surgical History Surgical History: hysterectomy - Social History Smoking Status: Never smoker Smokeless Tobacco Status: No Alcohol use: none Drug use: none - Family History Mother Living Status: Age at : 64 Father Living Status: Age at : 80 Cause of : brain tumor Internal Medicine - H&P: Meds Acetaminophen with Codeine [Acetaminophen-Cod #3 Tablet] 1 each PO QID 10/12/17 [History] Albuterol Sulfate [Albuterol Inhaler] 1 puff IH DAILY PRN 10/12/17 [History] Aspirin Enteric Coated [Aspirin EC] 325 mg PO DAILY 10/12/17 [History] Atorvastatin [Lipitor] 10 mg PO HS 10/12/17 [History] Citalopram Hydrobromide [Citalopram HBr] 10 mg PO BID 10/12/17 [History] Diltiazem CD (24hr) [Cardizem CD] 300 mg PO DAILY 10/12/17 [History] Etodolac [Lodine] 400 mg PO BID 10/12/17 [History] Gabapentin [Neurontin] 600 mg PO QID 10/12/17 [History] Lisinopril [Zestril] 5 mg PO BID 10/12/17 [History] Metformin HCl [Fortamet] 1,000 mg PO HS 10/12/17 [History] Methyl Salicylate/Menth/Camph [Salonpas Large Patch] 1 each TP DAILY PRN [History] Methyl Salicylate/Menthol [Salonpas Pain Relieve Jet [place]] 118 ml TP DAILY PRN 10/12/17 [History] Metoprolol Tartrate [Lopressor] 25 mg PO TID 10/12/17 [History] Omeprazole [PriLOSEC] 20 mg PO HS 10/12/17 [History] glyBURIDE [GlyBURIDE] 5 mg PO BIDWM 10/12/17 [History] 3 Allergy/AdvReac Type Severity Reaction Status Date / Time caffeine Allergy Palpitation Verified 10/13/17 10:44 s Penicillins Allergy Hives Verified 10/13/17 10:44 tramadol Allergy Vomiting Verified 10/13/17 10:44 All Systems PM: A 10-system review of systems was performed and is negative for pertinent findings except as documented above in the HPI. - Constitutional Vitals: Temp Pulse Resp BP Pulse Ox 98 F 79 17 167/80 96 10/27/17 11:01 10/27/17 17:03 10/27/17 17:03 10/27/17 17:03 10/27/17 17:03 General appearance: Present: no acute distress - Head Head exam: Present: normocephalic - Eye Eye exam: Present: normal appearance - Respiratory Respiratory exam: Present: CTAB. Absent: accessory muscle use, rales, rhonchi, wheezes - Cardiovascular Cardiovascular exam: Present: RRR, +S1, +S2. Absent: diastolic murmur, gallop, rubs, systolic murmur - Expanded Lower Extremities Exam Ankle exam: Present: swelling Foot/Toe exam: Present: swelling - Neurological Exam Neurological exam: Present: oriented X3 - Psychiatric Psychiatric exam: Present: normal mood - Skin Skin exam: Present: normal color Internal Med - H&P Results - Labs CBC & Chem 7: 10/27/17 11:22 10/27/17 11:22
[2017-10-27] MEDS ORDERED: Naloxone 0.4 MG/ML INJ IVP PRN (19:30)
[2017-10-27] MEDS ORDERED: D5% in Water 1,000 ML IVC PRN (19:40)
[2017-10-27] MEDS ORDERED: Dextrose Gel 15 GM/37.5 ML TUBE PO PRN (19:40)
[2017-10-27] MEDS ORDERED: Vancomycin 1,250 MG in D5% in Water 250 ML IVPB SCH (20:00)
[2017-10-27] MEDS: Ipratropium/Albuterol Neb 3 ML IH SCH ×2 (20:18→23:15)
[2017-10-27] MEDS: *HR* Heparin 5,000 UNIT/ML VIAL SQ SCH (20:24)
[2017-10-27] MEDS: Gabapentin 300 MG CAPSULE PO SCH (20:25)
[2017-10-27] MEDS: *HR* Acetaminophen w/Cod 300-30 mg 1 TAB TABLET PO SCH (20:28)
[2017-10-28] MEDS: Cefepime HCl 2,000 MG in Water for inj. (sterile) 20 ML 20 ML IVP SCH ×3 (01:18→17:54)
[2017-10-28] MEDS: Vancomycin 1,250 MG in D5% in Water 250 ML IVPB SCH ×2 (03:29→15:57)
[2017-10-28] MEDS: Ipratropium/Albuterol Neb 3 ML IH SCH ×6 (03:57→23:08)
[2017-10-28 04:46] LABS: Basophils # 0.1 K/mcL (0.0-0.2); Basophils % 1.4 %; Eosinophils # 0.3 K/mcL (0.0-0.6); Eosinophils % 4.8 %; Hematocrit 34.8 % (35.3-44.9); Hemoglobin 10.6 g/dL (11.5-15.4); Immature Granulocytes % 0.8 % (0-4); Lymphocytes % 14.9 %; Mean Corpuscular HGB Conc 30.5 g/dL (31.6-35.5); Mean Corpuscular Hemoglobin 27.4 pg (28.0-33.3); Mean Corpuscular Volume 89.9 fL (83.0-100.0); Mean Platelet Volume 9.7 fL (9.4-12.4); Monocytes # 0.7 K/mcL (0.0-1.3); Monocytes % 10.8 %; Neutrophils # 4.5 K/mcL (1.6-8.9); Platelet Count 227 K/mcL (140-400); Red Blood Count 3.87 M/mcL (3.82-4.97); Segmented Neutrophils % 67.3 %
[2017-10-28 04:52] LABS: BUN/Creatinine Ratio 23 (6-26); Blood Urea Nitrogen 15 mg/dL (8-23); Calcium 8.5 mg/dL (8.6-10.3); Carbon Dioxide 31 mEq/L (23-29); Chloride 102 mEq/L (98-107); Glucose 167 mg/dL (70-105); Osmolality,Calculated 299 (280-300); Potassium 3.5 mEq/L (3.5-5.1); Sodium 142 mEq/L (136-145); eGFR For African Americans > 60 (> 60); eGFR For Non-African Americans > 60 (> 60)
[2017-10-28] MEDS: *HR* Heparin 5,000 UNIT/ML VIAL SQ SCH ×3 (05:25→21:41)
[2017-10-28] MEDS ORDERED: *HR* GlyBURIDE 5 MG TABLET PO SCH (08:00)
[2017-10-28] MEDS: Aspirin Enteric Coated 325 MG Tablet PO SCH (09:14)
[2017-10-28] MEDS: Gabapentin 300 MG CAPSULE PO SCH ×4 (09:15→21:41)
[2017-10-28] MEDS: predniSONE 20 MG TABLET PO SCH (09:15)
[2017-10-28] MEDS: Diltiazem CD (24hr) 300 MG CAPSULE PO SCH (09:17)
[2017-10-28] MEDS: *HR* Acetaminophen w/Cod 300-30 mg 1 TAB TABLET PO SCH ×4 (09:23→21:41)
--- NOTE | 2017-10-28 11:36 | Internal Med Progress Note ---
<Rodolfo Palumbo - Last Filed: 10/28/17 13:38> Date of Encounter: 10/28/17 Time of Encounter: 11:31 - Assessment and plan (1) Short of breath on exertion Current Visit: Yes Status: Acute Assessment and plan: Possibly from Lung mass vs possibly from PNA vs less likely chf vs less likely PE. 10/27/17 - Chest CTA: no evidence of PE or Acute Aortic Dz, Bilateral lower lobe infiltrates + small pleural effusion consistent w/ PNA, mass like lesion in Right upper lobe. 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 No hx of CHF - no orthopnea, PND, or significant edema. Will consider further cardiac workup. Today patient is improving and stable on 2L of O2. - consult pulm for suspected lung mass - continue vanc + cefepime day 1 - incentive spirometry ordered - wean off of O2 - provide respiratory support PRN - swab for influenza - ordered (2) Obesity (BMI 30-39.9) Current Visit: Yes Status: Acute Assessment and plan: Discussed benefits of weight loss with patient. to be managed outpatient. (3) Acute respiratory failure with hypoxia Current Visit: Yes Status: Acute Assessment and plan: see above. (4) Diabetes mellitus type 2 in obese Current Visit: Yes Status: Acute Assessment and plan: hold PO diabetic Rx; ct SSI (5) DVT prophylaxis Current Visit: Yes Status: Acute Assessment and plan: heparin SQ (6) HLD (hyperlipidemia) Current Visit: Yes Status: Acute Assessment and plan: continue home statin Qualifiers: Hyperlipidemia type: unspecified Qualified Code(s): E78.5 - Hyperlipidemia , unspecified (7) Mood disorder Current Visit: Yes Status: Acute Assessment and plan: currently stable - Subjective Interval history: Ms Adams is a 62 yo female w/ pmh of TDM, HTN, HLD, GERD, and asthma presented to [facility] ED with 2 week hx of progressing SOB on exertion. In the last 2 weeks patient has increased her usage of LINDA to 3 times/day and using her duonebs on a nightly basis. She states that she was diagnosed with asthma as an adult about 20 years ago. 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 She denies hx of tobacco use. On admission, patient was started on O2 and due to her employment at [employer] was considered HAP. Started on IV vanc and IV cefepime (penicillin allergy). Today patient reports that her breathing is much better but has been laying in bed all day. She reports that her breathing is fine on the 2L of O2 that she's currently on. Patient denies fever, chills, aches, tiredness. - Constitutional Vitals: Temp Pulse Resp BP Pulse Ox 97.9 F 69 18 122/56 99 10/28/17 07:19 10/28/17 07:19 10/28/17 11:02 10/28/17 07:19 10/28/17 11:02 General appearance: Present: cooperative, A&O X 3, pleasant, no acute distress, answers questions appropriately - ENT ENT exam: Present: mucous membranes moist, normal exam, normal oropharynx - Respiratory Respiratory exam: Present: decreased breath sounds, prolonged expiratory phase. Absent: accessory muscle use, chest wall tenderness, rales, respiratory distress, stridor, wheezes - Cardiovascular Cardiovascular exam: Present: RRR. Absent: bradycardia, diastolic murmur, distant heart sounds, irregular rhythm, JVD, rubs - Extremities Exam Extremities exam: Present: normal capillary refill, normal inspection, warm, radial pulses palpable and symmetrical. Absent: calf tenderness, cyanotic Additional comments: mild pitting edema on L leg. no pitting edema on R leg - Psychiatric Psychiatric exam: Present: normal affect, normal mood Internal Medicine: Result - Labs CBC & Chem 7: 10/28/17 04:15 10/28/17 04:15 Labs: Short CBC 10/28/17 Range/Units 04:15 WBC 6.7 (4.3-11.1) K/mcL Hgb 10.6 L (11.5-15.4) g/dL Hct 34.8 L (35.3-44.9) % Plt Count 227 (140-400) K/mcL Neutrophils # 4.5 (1.6-8.9) K/mcL BMP 10/28/17 04:15 Sodium 142 Potassium 3.5 Chloride 102 Carbon Dioxide 31 H BUN 15 Creatinine 0.64 Glucose 167 H Calcium 8.5 L - ABG Interpretation ABG results: PT/INR, D-dimer D-Dimer 1331 ng/mLFEU (0-500) H 10/27/17 11:22 Consult Discharge Plan - Plan Referrals: Juan F Guzman MD [Primary Care Provider] - 11/04/17 10:30 am <Los Jang P - Last Filed: 10/28/17 16:11> Date of Encounter: 10/28/17 - Constitutional Vitals: Temp Pulse Resp BP Pulse Ox 97.8 F 81 18 135/65 90 10/28/17 15:14 10/28/17 15:14 10/28/17 15:55 10/28/17 15:14 10/28/17 15:55 Internal Medicine: Result - Labs CBC & Chem 7: 10/28/17 04:15 10/28/17 04:15 Labs: Short CBC 10/28/17 Range/Units 04:15 WBC 6.7 (4.3-11.1) K/mcL Hgb 10.6 L (11.5-15.4) g/dL Hct 34.8 L (35.3-44.9) % Plt Count 227 (140-400) K/mcL Neutrophils # 4.5 (1.6-8.9) K/mcL BMP 10/28/17 04:15 Sodium 142 Potassium 3.5 Chloride 102 Carbon Dioxide 31 H BUN 15 Creatinine 0.64 Glucose 167 H Calcium 8.5 L - ABG Interpretation ABG results: PT/INR, D-dimer D-Dimer 1331 ng/mLFEU (0-500) H 10/27/17 11:22 - Attending Attestation I examined this patient and my medical decision-making was reviewed with the Resident Physician. I agree with the documented findings, disposition and treatment plan as described except to the extent set forth below. 62/female Admitted with worsening shortness of breath. Likely COPD exacerbation with infective etiology. Presently on antibiotics. Noted that on a CT scan of the chest it was demonstrated pulmonary mass. We will get pulmonology to review.
--- NOTE | 2017-10-28 13:04 | Pulmonology Consult Note ---
Date of Encounter: 10/30/17 Time of Encounter: 13:00 Assessment and Plan (1) Acute respiratory failure with hypoxia Current Visit: Yes Status: Acute Patient never uses Oxygen at home now she is on Oxygen secondary pneumonia leading Asthma/COPD exacerbation to continue O2 supplementation to keep saturation 92% As patient has COPD on top of the asthma component . (2) Asthma with COPD with exacerbation Current Visit: Yes Status: Acute Patient has long standing Asthma , after seeing the image she same centrilobular emphysematous changes suspect even though she didnt smoke was exposed wood smoke in her younger years . To continue Duo neb nebulizer , ICS/ LABA ,Prednisone 40 mg PO (3) Pneumonia Current Visit: Yes Status: Acute Patient has multifocal pneumonia with scattered consolidative opacity with not much cough and sputum production will have strong suspicion for atypical pneumonia Vs Viral pneumonia will add Levaquin to current broad spectrum antibiotics regimen . To check Legionella , streptococcus pneumoniae antigen , Mycoplasma . With recent admission in the hospital for possible small bowel obstruction if not getting better will add clindamycin for better lung penetration than flagyl to cover anerobic coveraged . Will send Blood cultures , RT to do induced sputum . This is her first inpatient episode inflammatory pneumonias like [employer] is low on the differential will send respiratory viral infection panel . To do incentive spirometry and flutter valve to encourage coughing up secretions . When she coughs up send for sputum cultures . Qualifiers: Pneumonia type: due to unspecified organism Laterality: unspecified laterality Lung location: unspecified part of lung Qualified Code(s): J18.9 - Pneumonia, unspecified organism (4) CHF (congestive heart failure) Current Visit: Yes Status: Acute Patient has high BNP with some ground glass opacities in lungs concern for heart failure will get an ECHO patient has on and off pedal edema Qualifiers: Congestive heart failure type: unspecified Congestive heart failure chronicity: unspecified Qualified Code(s): I50.9 - Heart failure, unspecified (5) Mediastinal lymphadenopathy Current Visit: Yes Status: Acute Patient has significant lymphadenopathy in the hilar , subcarinal , Paratracheal area these all can be due to inflammation due to underlying pneumonia sanket repeat imaging as outpatient in 6-8 weeks to see the progress if there is persistent LN will do Bronchoscopy with airway evaluation and EBUS . Patient verbalized understanding of the plan (6) Lung nodule < 6cm on CT Current Visit: Yes Status: Acute It is in the Right upper lobe abutting the fissure this can be very well swelling of intraparenchymal LN will repeat imaging in 6-8 weeks as an outpatient if this nodular mass like lesions is persistent with mediastinal LN will do Bronchoscopy with EBUS as an outpatient . History of Present Illness Consult date: 10/28/17 Requesting physician: Los Jang Reason for consult: dyspnea, cough Chief complaint: Shortness of Breadth History of present illness: 62 year old female with past medical history significant for DM, HTN , asthma/ COPD most likely secondary to would smoke exposure right from the young age. She carries the diagnosis of asthma on LINDA prn , ICS/LABA comes with shortness of breadth which got progressively worsen over the course of 5 days , had some cough but not much sputum production she gets on and off pneumonia for the past 2 years always had outpatient therapy this is the first time she got admitted for pneumonia , patient was recently admitted in the hospital evaluation for Small bowel obstruction and she was discharged before all these started the was sick for couple of days then her shortness of breadth started , has some on and off pedal edema this time her left leg was more swelling when she came to the ER CTA was done which no evidence of PE but showed multilobar pneumonia with more prominent air space disease in the lower lobe , has bilateral ground glass opacities , has some areas of air trapping , she has mass like lesion in the RUL along the fissure primary team was concerned of this Right Lung mass . Pulmonary was Consulted for evaluation of this mass like lesion Past Med Surg Social Fam HX - Past Medical History Medical history: asthma, diabetes, valvular heart disease Psychiatric history: no psych history - Past Surgical History Surgical History: hysterectomy - Social History Smoking Status: Never smoker Smokeless Tobacco Status: No Alcohol use: none Drug use: none - Family History Mother Living Status: Age at : 64 Father Living Status: Age at : 80 Cause of : brain tumor Medications and Allergies Acetaminophen with Codeine [Acetaminophen-Cod #3 Tablet] 1 each PO QID 10/12/17 [History] Albuterol Sulfate [Albuterol Inhaler] 1 puff IH DAILY PRN 10/12/17 [History] Aspirin Enteric Coated [Aspirin EC] 325 mg PO DAILY 10/12/17 [History] Atorvastatin [Lipitor] 10 mg PO HS 10/12/17 [History] Citalopram Hydrobromide [Citalopram HBr] 10 mg PO BID 10/12/17 [History] Diltiazem CD (24hr) [Cardizem CD] 300 mg PO DAILY 10/12/17 [History] Etodolac [Lodine] 400 mg PO BID 10/12/17 [History] Gabapentin [Neurontin] 600 mg PO QID 10/12/17 [History] Lisinopril [Zestril] 5 mg PO BID 10/12/17 [History] Metformin HCl [Fortamet] 1,000 mg PO HS 10/12/17 [History] Methyl Salicylate/Menth/Camph [Salonpas Large Patch] 1 each TP DAILY PRN [History] Methyl Salicylate/Menthol [Salonpas Pain Relieve Jet [place]] 118 ml TP DAILY PRN 10/12/17 [History] Metoprolol Tartrate [Lopressor] 25 mg PO TID 10/12/17 [History] Omeprazole [PriLOSEC] 20 mg PO HS 10/12/17 [History] glyBURIDE [GlyBURIDE] 5 mg PO BIDWM 10/12/17 [History] PredniSONE [Deltasone] 5 mg PO DAILY 9 Days #21 tablet 10/30/17 [Rx] levoFLOXacin [Levaquin] 750 mg PO DAILY 7 Days #7 tablet 10/30/17 [Rx] 3 Allergy/AdvReac Type Severity Reaction Status Date / Time caffeine Allergy Palpitation Verified 10/13/17 10:44 s Penicillins Allergy Hives Verified 10/13/17 10:44 tramadol Allergy Vomiting Verified 10/13/17 10:44 All Systems: All other review of systems were found to be negative Physical Examination Vital Signs: Vital Signs, Last 4 Hours Temp Pulse Resp BP Pulse Ox 10/28/17 11:31 97.7 F 100 15 143/67 94 10/28/17 11:02 18 99 Auscultation: bilateral: diminished breath sounds Results - Laboratory Findings CBC and BMP: 10/29/17 17:38 10/30/17 05:04 PT/INR, D-dimer D-Dimer 1331 ng/mLFEU (0-500) H 10/27/17 11:22 Abnormal lab findings: Abnormal lab results Hgb 10.6 g/dL (11.5-15.4) L 10/28/17 04:15 Hct 34.8 % (35.3-44.9) L 10/28/17 04:15 MCH 27.4 pg (28.0-33.3) L 10/28/17 04:15 MCHC 30.5 g/dL (31.6-35.5) L 10/28/17 04:15 RDW 16.0 % (11.5-14.5) H 10/28/17 04:15 Nucleated RBCs/100 WBC 0.3 /100 WBC (0) H 10/27/17 11:22 D-Dimer 1331 ng/mLFEU (0-500) H 10/27/17 11:22 Carbon Dioxide 31 mEq/L (23-29) H 10/28/17 04:15 Glucose 167 mg/dL (70-105) H 10/28/17 04:15 POC Glucose 288 (58-89) H 10/27/17 20:48 Calcium 8.5 mg/dL (8.6-10.3) L 10/28/17 04:15 B-Natriuretic Peptide 389 pg/mL (Less than 100) H 10/27/17 11:22 - Clinical Findings Intake & Output: Intake & Output 10/27/17 10/28/17 10/28/17 23:59 07:59 15:59 Intake Total 0 / 0 560 / 560 340 / 340 Output Total 0 / 0 Balance 0 / 0 560 / 560 340 / 340 Weight 85.1 kg Consult Discharge Plan - Plan Additional Instructions: 1. F/U CTA in 6 weeks 2. No stranuous activities 3. no lifting 4. use O2 at night and on activity 5. instructions for tapered dose of Prednisone 6. finish levaquin course Referrals: Ching Nieto MD [Partnered Physician] - (referral was made for 6 week follow, up if they ahve not called you by next tuesday call their office to make an appointment) Juan F Guzman MD [Primary Care Provider] - 11/04/17 10:30 am Prescriptions: levoFLOXacin [Levaquin] 750 mg PO DAILY 7 Days #7 tablet PredniSONE [Deltasone] 5 mg PO DAILY 9 Days #21 tablet
--- NOTE | 2017-10-28 13:45 | Electrocardiograph Report ---
[place] [id number] Test Date: 2017-10-27 Pat Name: Odalys Adams Department: 103 Room: 2N2 Gender: F Second Facing Baster: : 1955 Requested By: Rubin Mitchell Order Number: [id number] Reading MD: Fish Mantilla Measurements Intervals [place] Rate: 71 P: 50 MT: 139 QRS: 48 QRSD: 82 T: 8 QT: 392 QTc: 414 Interpretive Statements SINUS RHYTHM NONSPECIFIC T-WAVE ABNORMALITY Electronically Signed On 10-28-2017 13:43:54 EST by Fish Mantilla
[2017-10-28] MEDS ORDERED: *HR* Dextrose 50 % in Water (Syg) 50 ML SYRINGE IVP PRN (13:46)
[2017-10-28] MEDS ORDERED: D5% in Water 1,000 ML IVC PRN (13:46)
[2017-10-28] MEDS ORDERED: Dextrose Gel 15 GM/37.5 ML TUBE PO PRN ×2 (13:46)
[2017-10-28 15:25] LABS: Adenovirus Not Detected (Not Detect); Bordetella Pertussis Not Detected (Not Detect); Chlamydophila pneumoniae Not Detected (Not Detect); Coronavirus 229E Not Detected (Not Detect); Coronavirus HKU1 Not Detected (Not Detect); Coronavirus NL63 Not Detected (Not Detect); Coronavirus OC43 Not Detected (Not Detect); Human Metapneumovirus Not Detected (Not Detect); Human Rhinovirus/Enterovirus Not Detected (Not Detect); Influenza A Subtype 2009 H1 Not Detected (Not Detect); Influenza A Untypeable Not Detected (Not Detect); Influenza B Not Detected (Not Detect); Mycoplasma pneumoniae Not Detected (Not Detect); Parainfluenza Virus 1 Not Detected (Not Detect); Parainfluenza Virus 2 Not Detected (Not Detect); Parainfluenza Virus 3 Not Detected (Not Detect); Parainfluenza Virus 4 Not Detected (Not Detect); Respiratory Syncytial Virus Not Detected (Not Detect)
[2017-10-28] MEDS: Insulin LISPRO 300 UNITS/3 ML VIAL SQ SCH ×2 (17:56→21:51)
[2017-10-29 02:36] LABS: Basophils % 0.4 %; Eosinophils % 0.1 %; Hematocrit 33.6 % (35.3-44.9); Hemoglobin 10.3 g/dL (11.5-15.4); Immature Granulocytes % 0.5 % (0-4); Lymphocytes # 0.5 K/mcL (0.6-4.6); Lymphocytes % 6.5 %; Mean Corpuscular HGB Conc 30.7 g/dL (31.6-35.5); Mean Corpuscular Hemoglobin 27.2 pg (28.0-33.3); Mean Corpuscular Volume 88.7 fL (83.0-100.0); Mean Platelet Volume 9.7 fL (9.4-12.4); Monocytes # 0.7 K/mcL (0.0-1.3); Monocytes % 8.7 %; Neutrophils # 6.3 K/mcL (1.6-8.9); Platelet Count 238 K/mcL (140-400); Red Blood Count 3.79 M/mcL (3.82-4.97); Red Cell Distribution Width 15.7 % (11.5-14.5); Segmented Neutrophils % 83.8 %
[2017-10-29 02:47] LABS: BUN/Creatinine Ratio 27 (6-26); Blood Urea Nitrogen 20 mg/dL (8-23); Calcium 8.8 mg/dL (8.6-10.3); Carbon Dioxide 29 mEq/L (23-29); Chloride 100 mEq/L (98-107); Glucose 279 mg/dL (70-105); Osmolality,Calculated 297 (280-300); Potassium 3.7 mEq/L (3.5-5.1); Sodium 137 mEq/L (136-145); eGFR For African Americans > 60 (> 60); eGFR For Non-African Americans > 60 (> 60)
[2017-10-29] MEDS: Ipratropium/Albuterol Neb 3 ML IH SCH ×5 (03:29→20:04)
[2017-10-29] MEDS: Vancomycin 1,250 MG in D5% in Water 250 ML IVPB SCH ×2 (03:38→15:34)
[2017-10-29] MEDS: Cefepime HCl 2,000 MG in Water for inj. (sterile) 20 ML 20 ML IVP SCH ×2 (06:29→18:36)
[2017-10-29] MEDS: *HR* Heparin 5,000 UNIT/ML VIAL SQ SCH ×3 (06:30→21:12)
[2017-10-29] MEDS: predniSONE 20 MG TABLET PO SCH (07:48)
[2017-10-29] MEDS: Insulin LISPRO 300 UNITS/3 ML VIAL SQ SCH ×4 (07:48→21:17)
[2017-10-29] MEDS: *HR* Acetaminophen w/Cod 300-30 mg 1 TAB TABLET PO SCH ×4 (07:49→21:21)
[2017-10-29] MEDS: Gabapentin 300 MG CAPSULE PO SCH ×4 (07:49→21:11)
[2017-10-29] MEDS: Aspirin Enteric Coated 325 MG Tablet PO SCH (07:49)
[2017-10-29] MEDS: Diltiazem CD (24hr) 300 MG CAPSULE PO SCH (07:50)
[2017-10-29] MEDS: levoFLOXacin 750 MG TABLET PO SCH (08:01)
--- NOTE | 2017-10-29 09:05 | Internal Med Progress Note ---
<Rodolfo Palumbo - Last Filed: 10/29/17 09:02> Date of Encounter: 10/29/17 Time of Encounter: 09:03 - Assessment and plan (1) Short of breath on exertion Current Visit: Yes Status: Acute Assessment and plan: Possibly from Lung mass vs possibly from PNA vs less likely chf vs less likely PE. 10/27/17 - Chest CTA: no evidence of PE or Acute Aortic Dz, Bilateral lower lobe infiltrates + small pleural effusion consistent w/ PNA, mass like lesion in Right upper lobe. 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 Resp viral panel negative. No hx of CHF - no orthopnea, PND, or significant edema. Will consider further cardiac workup. Today patient is improving and stable on 2L of O2. If patient, declines will consider including clindamycin for anaerobic coverage. - Pulm f/u apt 6 weeks after d/c for CT - continue vanc + cefepime day 2 - continue levaquin day 1 - continue IS multiple times an hour - walk w/ assistance multiple times today. - d/c O2 - provide respiratory support PRN - appreciate pulmonology's input. (2) Obesity (BMI 30-39.9) Current Visit: Yes Status: Acute Assessment and plan: Discussed benefits of weight loss with patient. to be managed outpatient. (3) Acute respiratory failure with hypoxia Current Visit: Yes Status: Acute Assessment and plan: see above. (4) Diabetes mellitus type 2 in obese Current Visit: Yes Status: Acute Assessment and plan: hold PO diabetic Rx; ct SSI (5) DVT prophylaxis Current Visit: Yes Status: Acute Assessment and plan: heparin SQ (6) HLD (hyperlipidemia) Current Visit: Yes Status: Acute Assessment and plan: continue home statin Qualifiers: Hyperlipidemia type: unspecified Qualified Code(s): E78.5 - Hyperlipidemia , unspecified (7) Mood disorder Current Visit: Yes Status: Acute Assessment and plan: currently stable - Subjective Interval history: Ms Adams is a 62 yo female w/ pmh of TDM, HTN, HLD, GERD, and asthma presented to [place] ED with 2 week hx of progressing SOB on exertion. In the last 2 weeks patient has increased her usage of LINDA to 3 times/day and using her duonebs on a nightly basis. She states that she was diagnosed with asthma as an adult about 20 years ago. 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 She denies hx of tobacco use. On admission, patient was started on O2 and due to her employment at [employer] was considered HAP. Started on IV vanc and IV cefepime (penicillin allergy). Today patient reports that she's been using the breathing devices including the IS multiple times an hour and feels she's almost back to baseline. Last night, she walked multiple times without her O2 with minimal SOB. Patient denies n/v, f/c, CP. - Constitutional Vitals: Temp Pulse Resp BP Pulse Ox 98.1 F 84 18 143/72 94 10/29/17 07:06 10/29/17 07:06 10/29/17 07:30 10/29/17 07:32 10/29/17 07:30 General appearance: Present: cooperative, A&O X 3, pleasant, no acute distress, answers questions appropriately Exam: patient was seen relaxed, friendly and comfortable. - Head Head exam: Present: atraumatic, normocephalic - Respiratory Respiratory exam: Present: decreased breath sounds, wheezes. Absent: accessory muscle use, chest wall tenderness, prolonged expiratory phase, respiratory distress, tachypnea - Cardiovascular Cardiovascular exam: Present: RRR. Absent: diastolic murmur, gallop, rubs, systolic murmur, tachycardia Additional comments: non-consecutive PVC's seen every few beats. - Extremities Exam Extremities exam: Present: normal capillary refill, warm, radial pulses palpable and symmetrical. Absent: calf tenderness, cyanotic, pedal edema - Psychiatric Psychiatric exam: Present: normal affect, normal mood Internal Medicine: Result - Labs CBC & Chem 7: 10/29/17 02:19 10/29/17 02:19 Labs: Short CBC 10/29/17 Range/Units 02:19 WBC 7.6 (4.3-11.1) K/mcL Hgb 10.3 L (11.5-15.4) g/dL Hct 33.6 L (35.3-44.9) % Plt Count 238 (140-400) K/mcL Neutrophils # 6.3 (1.6-8.9) K/mcL BMP 10/29/17 02:19 Sodium 137 Potassium 3.7 Chloride 100 Carbon Dioxide 29 BUN 20 Creatinine 0.75 Glucose 279 H Calcium 8.8 - ABG Interpretation ABG results: PT/INR, D-dimer D-Dimer 1331 ng/mLFEU (0-500) H 10/27/17 11:22 Consult Discharge Plan - Plan Referrals: Ching Nieto MD [Partnered Physician] - (referral was made for 6 week follow, up if they ahve not called you by next tuesday call their office to make an appointment) Juan F Guzman MD [Primary Care Provider] - 11/04/17 10:30 am <Los Jang - Last Filed: 10/29/17 15:26> Date of Encounter: 10/29/17 - Constitutional Vitals: Temp Pulse Resp BP Pulse Ox 97.6 F 87 15 132/75 92 10/29/17 14:40 10/29/17 14:40 10/29/17 14:40 10/29/17 14:40 10/29/17 14:40 Internal Medicine: Result - Labs CBC & Chem 7: 10/29/17 02:19 10/29/17 02:19 Labs: Short CBC 10/29/17 Range/Units 02:19 WBC 7.6 (4.3-11.1) K/mcL Hgb 10.3 L (11.5-15.4) g/dL Hct 33.6 L (35.3-44.9) % Plt Count 238 (140-400) K/mcL Neutrophils # 6.3 (1.6-8.9) K/mcL BMP 10/29/17 02:19 Sodium 137 Potassium 3.7 Chloride 100 Carbon Dioxide 29 BUN 20 Creatinine 0.75 Glucose 279 H Calcium 8.8 - ABG Interpretation ABG results: PT/INR, D-dimer D-Dimer 1331 ng/mLFEU (0-500) H 10/27/17 11:22 - Attending Attestation I examined this patient and my medical decision-making was reviewed with the Resident Physician. I agree with the documented findings, disposition and treatment plan as described except to the extent set forth below. Continue present treatment for now. We will follow the recommendations from pulmonary. Likely home tomorrow
--- NOTE | 2017-10-29 10:17 | Pulmonology Progress Note ---
Date of Encounter: 10/30/17 Time of Encounter: 10:10 Assessment and Plan (1) Acute respiratory failure with hypoxia Current Visit: Yes Status: Acute Patient never uses Oxygen at home now she is on Oxygen secondary pneumonia leading Asthma/COPD exacerbation to continue O2 supplementation to keep saturation 92% As patient has COPD on top of the asthma component . (2) Asthma with COPD with exacerbation Current Visit: Yes Status: Acute Patient has long standing Asthma , after seeing the image she same centrilobular emphysematous changes suspect even though she didnt smoke was exposed wood smoke in her younger years . To continue Duo neb nebulizer , ICS/ LABA ,Prednisone 40 mg PO send her home on 12 steroid taper (3) Pneumonia Current Visit: Yes Status: Acute Patient has multifocal pneumonia with scattered consolidative opacity with not much cough and sputum production will have strong suspicion for atypical pneumonia Vs Viral pneumonia will add Levaquin to current broad spectrum antibiotics regimen . To check Legionella , streptococcus pneumoniae antigen , Mycoplasma . With recent admission in the hospital for possible small bowel obstruction if not getting better will add clindamycin for better lung penetration than flagyl to cover anerobic coveraged . Will send Blood cultures , RT to do induced sputum . This is her first inpatient episode inflammatory pneumonias like [employer] is low on the differential will send respiratory viral infection panel . To do incentive spirometry and flutter valve to encourage coughing up secretions . When she coughs up send for sputum cultures . 2/3 : After using the flutter valve and Levaquin patient has clinically much improved will send the sputum for culture . prelim read in sputum culture showed some gram positive cocci . To continue the current spectrum antibiotics with levaquin Qualifiers: Pneumonia type: due to unspecified organism Laterality: unspecified laterality Lung location: unspecified part of lung Qualified Code(s): J18.9 - Pneumonia, unspecified organism (4) CHF (congestive heart failure) Current Visit: Yes Status: Acute Patient has high BNP with some ground glass opacities in lungs concern for heart failure patient has on and off pedal edema diuresis according to primary team Q Qualifiers: Congestive heart failure type: unspecified Congestive heart failure chronicity: unspecified Qualified Code(s): I50.9 - Heart failure, unspecified (5) Mediastinal lymphadenopathy Current Visit: Yes Status: Acute Secondary to pneumonia will revaluate in 6-8 weeks if still persistent then will pursue with EBUS as an outpatient . (6) Lung nodule < 6cm on CT Current Visit: Yes Status: Acute It is in the Right upper lobe abutting the fissure this can be very well swelling of intraparenchymal LN will repeat imaging in 6-8 weeks as an outpatient if this nodular mass like lesions is persistent with mediastinal LN will do Bronchoscopy with EBUS as an outpatient . To schedule outpatient pulmonology follow up 6-8 weeks Subjective Principal diagnosis: Pneumonia Interval history: Patient is sitting in her chair off oxygen she said this the best she felt during this course of this illness denies any chest pain or tightness after the flutter valve use she is able to bring up lot of sputum . Objective PUL Vital signs: Last Vital Signs Temp 98.1 F 10/29/17 07:06 Pulse 84 10/29/17 07:06 Resp 18 10/29/17 07:30 BP 143/72 10/29/17 07:32 Pulse Ox 94 10/29/17 07:30 Auscultation: bilateral: diminished breath sounds (bilateral bibasilar breadth sounds diminished ) Results - Laboratory Findings CBC and BMP: 10/29/17 17:38 10/30/17 05:04 PT/INR, D-dimer D-Dimer 1331 ng/mLFEU (0-500) H 10/27/17 11:22 Abnormal lab findings: Abnormal lab results RBC 3.79 M/mcL (3.82-4.97) L 10/29/17 02:19 Hgb 10.3 g/dL (11.5-15.4) L 10/29/17 02:19 Hct 33.6 % (35.3-44.9) L 10/29/17 02:19 MCH 27.2 pg (28.0-33.3) L 10/29/17 02:19 MCHC 30.7 g/dL (31.6-35.5) L 10/29/17 02:19 RDW 15.7 % (11.5-14.5) H 10/29/17 02:19 Lymphocytes # 0.5 K/mcL (0.6-4.6) L 10/29/17 02:19 Nucleated RBCs/100 WBC 0.3 /100 WBC (0) H 10/27/17 11:22 D-Dimer 1331 ng/mLFEU (0-500) H 10/27/17 11:22 BUN/Creatinine Ratio 27 (6-26) H 10/29/17 02:19 Glucose 279 mg/dL (70-105) H 10/29/17 02:19 POC Glucose 316 (58-89) H 10/28/17 20:42 B-Natriuretic Peptide 389 pg/mL (Less than 100) H 10/27/17 11:22 - Microbiology Findings Microbiology Findings: Microbiology, Last 48 Hours 10/29/17 06:15 Streptococcus pneumoniae Antigen (M - Final Urine,Clean Catch 10/29/17 06:15 Legionella Antigen - Final Urine,Clean Catch - Clinical Findings Intake & Output: Intake & Output 10/28/17 10/29/17 10/29/17 23:59 07:59 15:59 Intake Total 510 / 510 120 / 120 Output Total 400 / 400 0 / 0 Balance 110 / 110 120 / 120 Weight 85.3 kg Consult Discharge Plan - Plan Additional Instructions: 1. F/U CTA in 6 weeks 2. No stranuous activities 3. no lifting 4. use O2 at night and on activity 5. instructions for tapered dose of Prednisone 6. finish levaquin course Referrals: Ching Nieto MD [Partnered Physician] - (referral was made for 6 week follow, up if they ahve not called you by next tuesday call their office to make an appointment) Juan F Guzman MD [Primary Care Provider] - 11/04/17 10:30 am Prescriptions: levoFLOXacin [Levaquin] 750 mg PO DAILY 7 Days #7 tablet PredniSONE [Deltasone] 5 mg PO DAILY 9 Days #21 tablet
[2017-10-29 17:55] LABS: Basophils % 0.3 %; Eosinophils % 0.1 %; Hematocrit 37.1 % (35.3-44.9); Hemoglobin 11.4 g/dL (11.5-15.4); Immature Granulocytes % 0.4 % (0-4); Lymphocytes # 0.4 K/mcL (0.6-4.6); Lymphocytes % 3.9 %; Mean Corpuscular HGB Conc 30.7 g/dL (31.6-35.5); Mean Corpuscular Hemoglobin 27.7 pg (28.0-33.3); Mean Corpuscular Volume 90.3 fL (83.0-100.0); Mean Platelet Volume 9.8 fL (9.4-12.4); Monocytes # 0.3 K/mcL (0.0-1.3); Monocytes % 3.8 %; Neutrophils # 8.3 K/mcL (1.6-8.9); Platelet Count 292 K/mcL (140-400); Red Blood Count 4.11 M/mcL (3.82-4.97); Red Cell Distribution Width 15.8 % (11.5-14.5); Segmented Neutrophils % 91.5 %
[2017-10-30] MEDS: Ipratropium/Albuterol Neb 3 ML IH SCH ×4 (00:04→10:15)
[2017-10-30] MEDS: Vancomycin 1,250 MG in D5% in Water 250 ML IVPB SCH (03:23)
[2017-10-30 05:38] LABS: BUN/Creatinine Ratio 32 (6-26); Blood Urea Nitrogen 23 mg/dL (8-23); Calcium 8.6 mg/dL (8.6-10.3); Carbon Dioxide 28 mEq/L (23-29); Chloride 102 mEq/L (98-107); Glucose 211 mg/dL (70-105); Osmolality,Calculated 298 (280-300); Potassium 3.5 mEq/L (3.5-5.1); Sodium 139 mEq/L (136-145); eGFR For African Americans > 60 (> 60); eGFR For Non-African Americans > 60 (> 60)
[2017-10-30] MEDS: Cefepime HCl 2,000 MG in Water for inj. (sterile) 20 ML 20 ML IVP SCH (05:59)
[2017-10-30] MEDS: *HR* Heparin 5,000 UNIT/ML VIAL SQ SCH (06:00)
[2017-10-30 07:32] VITALS: BP 149/79
[2017-10-30] MEDS: *HR* Acetaminophen w/Cod 300-30 mg 1 TAB TABLET PO SCH (08:05)
[2017-10-30] MEDS: Aspirin Enteric Coated 325 MG Tablet PO SCH (08:06)
[2017-10-30] MEDS: levoFLOXacin 750 MG TABLET PO SCH (08:06)
[2017-10-30] MEDS: Diltiazem CD (24hr) 300 MG CAPSULE PO SCH (08:06)
[2017-10-30] MEDS: Gabapentin 300 MG CAPSULE PO SCH (08:06)
[2017-10-30] MEDS: Insulin LISPRO 300 UNITS/3 ML VIAL SQ SCH (08:08)
[2017-10-30] MEDS: predniSONE 20 MG TABLET PO SCH (08:12)
--- NOTE | 2017-10-30 08:58 | Discharge Summary ---
<Rodolfo Palumbo - Last Filed: 10/30/17 08:53> Date of Encounter: 10/30/17 Time of Encounter: 08:54 - Discharge Diagnosis (1) Acute respiratory failure with hypoxia Priority: Primary Status: Acute (2) Short of breath on exertion Priority: Secondary Status: Acute (3) Obesity (BMI 30-39.9) Priority: Secondary Status: Acute (4) Diabetes mellitus type 2 in obese Priority: Secondary Status: Acute (5) DVT prophylaxis Priority: Secondary Status: Acute (6) HLD (hyperlipidemia) Priority: Secondary Status: Acute Qualifiers: Hyperlipidemia type: unspecified Qualified Code(s): E78.5 - Hyperlipidemia , unspecified (7) Mood disorder Priority: Secondary Status: Acute - Discharge Medications Prescriptions: levoFLOXacin [Levaquin] 750 mg PO DAILY 7 Days #7 tablet PredniSONE [Deltasone] 5 mg PO DAILY 9 Days #21 tablet Home Medications: Acetaminophen with Codeine [Acetaminophen-Cod #3 Tablet] 1 each PO QID 10/12/17 [History] Albuterol Sulfate [Albuterol Inhaler] 1 puff IH DAILY PRN 10/12/17 [History] Aspirin Enteric Coated [Aspirin EC] 325 mg PO DAILY 10/12/17 [History] Atorvastatin [Lipitor] 10 mg PO HS 10/12/17 [History] Citalopram Hydrobromide [Citalopram HBr] 10 mg PO BID 10/12/17 [History] Diltiazem CD (24hr) [Cardizem CD] 300 mg PO DAILY 10/12/17 [History] Etodolac [Lodine] 400 mg PO BID 10/12/17 [History] Gabapentin [Neurontin] 600 mg PO QID 10/12/17 [History] Lisinopril [Zestril] 5 mg PO BID 10/12/17 [History] Metformin HCl [Fortamet] 1,000 mg PO HS 10/12/17 [History] Methyl Salicylate/Menth/Camph [Salonpas Large Patch] 1 each TP DAILY PRN [History] Methyl Salicylate/Menthol [Salonpas Pain Relieve Jet [place]] 118 ml TP DAILY PRN 10/12/17 [History] Metoprolol Tartrate [Lopressor] 25 mg PO TID 10/12/17 [History] Omeprazole [PriLOSEC] 20 mg PO HS 10/12/17 [History] glyBURIDE [GlyBURIDE] 5 mg PO BIDWM 10/12/17 [History] PredniSONE [Deltasone] 5 mg PO DAILY 9 Days #21 tablet 10/30/17 [Rx] levoFLOXacin [Levaquin] 750 mg PO DAILY 7 Days #7 tablet 10/30/17 [Rx] Allergies/Adverse Reactions: 3 Allergy/AdvReac Type Severity Reaction Status Date / Time caffeine Allergy Palpitation Verified 10/13/17 10:44 s Penicillins Allergy Hives Verified 10/13/17 10:44 tramadol Allergy Vomiting Verified 10/13/17 10:44 Date of admission: 10/27/17 14:36 Primary care physician: Juan F Guzman MD Consults: 10/28/17 10:55 Consult to Pulmonology [CONS] Routine Consulting Provider: [facility] Reason for Consult: possible upper lobe mass seen on imaging Call Completed: Yes 10/28/17 13:09 Consult to Pulmonology [CONS] Routine Consulting Provider: [facility] Reason for Consult: lung mass Call Completed: Yes - Patient Status Disposition: Home, Self-Care Condition: Fair Functional capacity at discharge: uses cane/walker Overall status at discharge: patient is progressing back to baseline - Discharge Instructions Instructions: Prednisone (By mouth), Levofloxacin (By mouth), Heart Failure (DC ), Asthma (DC), Diabetes Mellitus Type 2 in Adults (DC), Using Oxygen at Home ( GEN), Pneumonia (DC) Follow Up With: Ching Nieto MD [Partnered Physician] - (referral was made for 6 week follow, up if they ahve not called you by next tuesday call their office to make an appointment) Juan F Guzman MD [Primary Care Provider] - 11/04/17 10:30 am Additional Instructions: 1. F/U CTA in 6 weeks 2. No stranuous activities 3. no lifting 4. use O2 at night and on activity 5. instructions for tapered dose of Prednisone 6. finish levaquin course - Diet and Activity Activity: increase activity as tolerated, return to work once cleared by your PCP/specialist, wear oxygen at night (and on activity) Diet: diabetic diet Hospital course: Ms. Adams is a 62 year old female w/ pmh of T2DM, HTN, HLD, GERD, and asthma presented to [facility] with a 2 week hx of progressive SOB on exertion. Patient has required her LINDA around 3x a day and her duonebs on a nightly basis. This is above her baseline. She was diagnosed with asthma about 20 years ago, and she's had a life time exposure to wood burning. She denies all other occupational or environmental exposures or tobacco usage. 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 In the Ed patient was started on O2, and considered HAP due to her employment at [employer]. She has no recent illness or antibiotic usage. Patient was started on Vancomycin and cefepime, due to penicillin allergy. CXR was performed and suggested CHF w/ small bilateral pleural effusions. Follow up Ct was performed - Mass like lesion in the right upper lobe, and mediastinal and right hilar adenopathy. Peripheral Cx, urine legionella and S. PNA, and viral respiratory panel came back negative. Due to these findings, Pulm was brought on board. Dr. Ching Nieto evaluated patient, and determined patient should be followed up in 6 weeks for evaluation of mass. As well, they recommended broader coverage to include atypicals; Levaquin was started. Patient remained hemodynamically stable throughout hospitalization and respiratory support. Patient qualified for home O2 at 1 min of walk. Patient prescribed home O2 for night time and usage on exertion. Patient also given prescription for tapering of Prednisone, and levaquin. Due to high clinical suspicion of PE, LE venous doppler was performed which came back normal. CTA showed no evidence of PE. Patient hx was not suggestive of CHF. Positive for SOB on exertion which improved with LINDA and duonebs but negative for Orthopnea, PND, JVD, edema at PSIS or LE. EKG - sinus rhythm. Pulm appointment w/ CTA in 6 weeks. PCP follow up w/in 1 week. Patient to not return to work until cleared by PCP. If patient does not improve, patient may require cardiology appointment as well for CHF workup. Time spent discussing smoking cessation with patient: more than 10 minutes - Time Spent with Patient Total time spent providing and/or coordinating discharge services: Greater than 30 minutes - Constitutional Vitals: Temp Pulse Resp BP Pulse Ox 97.9 F 90 14 149/79 95 10/30/17 07:30 10/30/17 07:30 10/30/17 07:38 10/30/17 07:30 10/30/17 07:38 General appearance: Present: cooperative, A&O X 3, pleasant, no acute distress, answers questions appropriately - Neck Additional comments: no JVD - Respiratory Respiratory exam: Present: prolonged expiratory phase, wheezes. Absent: accessory muscle use, chest wall tenderness, respiratory distress - Cardiovascular Cardiovascular exam: Present: RRR. Absent: diastolic murmur, gallop, irregular rhythm, rubs, systolic murmur, tachycardia - Extremities Exam Extremities exam: Present: normal capillary refill, warm, radial pulses palpable and symmetrical. Absent: calf tenderness, cyanotic, pedal edema - Back Exam Additional comments: no edema on PSIS - Psychiatric Psychiatric exam: Present: normal affect, normal mood <Los Jang P - Last Filed: 10/30/17 15:36> Date of Encounter: 10/30/17 Date of admission: 10/27/17 14:36 Primary care physician: Juan F Guzman MD Consults: 10/28/17 10:55 Consult to Pulmonology [CONS] Routine Consulting Provider: [facility] Reason for Consult: possible upper lobe mass seen on imaging Call Completed: Yes 10/28/17 13:09 Consult to Pulmonology [CONS] Routine Consulting Provider: [facility] Reason for Consult: lung mass Call Completed: Yes Hospital course: Ms. Adams is a 62 year old female - Time Spent with Patient Total time spent providing and/or coordinating discharge services: - Constitutional Vitals: Temp Pulse Resp BP Pulse Ox 97.9 F 90 14 149/79 95 10/30/17 07:30 10/30/17 07:30 10/30/17 07:38 10/30/17 07:30 10/30/17 07:38 - Attending Attestation I examined this patient and my medical decision-making was reviewed with the Resident Physician. I agree with the documented findings, disposition and treatment plan as described except to the extent set forth below. Continue oral antibiotics at home. Follow-up with pulmonary as outpatient. Plan of care explained to the patient and she verbalized understanding
[2017-10-30] MEDS ORDERED: Aminoglycoside Consult 1 EACH MC ONE (11:18)
[2017-10-31 09:53] LABS: Mycoplasma pneumoniae IgG 0.26 U/L (<=0.09)
== END 2017-10-30 11:19 | disposition home or self-care (01) | DRG 190 ==
LOC: EMEROO 10:52 → 2NENU 14:36
PROVIDERS: ADMIT Internal Medicine Cardiovascular Disease; ATTEND Internal Medicine